=== PATIENT | female | born 1985 | race Hispanic/Latino ===

== ENCOUNTER → 2024-09-19 | Outpatient (REF) | payer BC ==
[~2024-09-19] MED LIST: IOPAMIDOL 370 MG/ML 100 ML INFUS..BTL INJ ONE
== END | disposition home or self-care (01) ==
LOC: DX 11:11
PROVIDERS: ATTEND Obstetrics & Gynecology
DX: Z87.59 Personal history of other complications of pregnancy, childbirth and the puerperium (principal); Z90.79 Acquired absence of other genital organ(s)
CPT/HCPCS: 58340; 74740; 81025; Q9967